=== PATIENT | female | born 1960 | race Hispanic/Latino ===

== ENCOUNTER → 2017-09-06 | Outpatient (CLI) | payer BC ==
--- NOTE | 2017-09-06 18:24 | Diagnostic Imaging Report ---
PROCEDURE: CT abdomen and pelvis without contrast. TECHNIQUE: Multiple contiguous axial images were obtained through the abdomen and pelvis without the use of intravenous contrast. INDICATION: Hematuria. Low back pain. FINDINGS: The lung bases are clear. The liver demonstrates an oval low-density lesion measuring 1.7 cm in the left hepatic lobe likely related to hepatic cyst. The spleen, the adrenal glands, the pancreas, and the gallbladder appear unremarkable. No hydronephrosis is seen. There are a number of pelvic calcifications seen which appear to relate to phleboliths. No urinary tract stones are identified. The appendix is normal. Moderate amount of fecal material is seen in the right colon. No bowel obstruction. The abdominal aorta is normal in caliber. No para-aortic significantly enlarged lymph node is seen. There is a small fat-containing umbilical hernia. The uterus and the adnexa appear grossly unremarkable. No significant free fluid or fluid collection is seen in the abdomen or pelvis. The osseous structures demonstrate degenerative changes in the lower lumbar spine. IMPRESSION: 1. Tiny fat-containing umbilical hernia. 2. No urinary tract stones or hydronephrosis. Dictated by: Dictated on workstation # [id number]
== END ==
LOC: RAD 13:31
PROVIDERS: ATTEND Urology
DX: R31.0 Gross hematuria (principal); K42.9 Umbilical hernia without obstruction or gangrene
CPT/HCPCS: 74176

== ENCOUNTER 2022-05-10 05:39 | Outpatient (CLI) | payer BC, OTHER ==
[~2022-05-10] VITALS: Ht 160 cm; Wt 65.8 kg
[2022-05-10] MEDS ORDERED: LINA290C PO (09:22)
[2022-05-10] MEDS ORDERED: DOCU100C37 PO (09:22)
[2022-05-10] MEDS ORDERED: ATOR20TA66 PO (09:22)
[2022-05-10] MEDS ORDERED: MONT-40 PO (09:22)
[2022-05-10] MEDS ORDERED: OMEP40CA6 PO (09:22)
[2022-05-10] MEDS ORDERED: FAMO20TA3 PO (09:22)
[2022-05-10] MEDS ORDERED: BACI1CAP6 PO (09:22)
== END 2022-05-10 09:26 | disposition home or self-care (01) ==
LOC: PREOP 05:39
PROVIDERS: ATTEND Surgery
DX: Z01.818 Encounter for other preprocedural examination (principal)

== ENCOUNTER 2022-05-22 08:27 | Day surgery (SDC) | payer BC, OTHER ==
[2022-05-22] VITALS (8 sets, daily range): BP systolic 78–126; BP diastolic 49–69
[~2022-05-22] VITALS: Ht 160 cm; Wt 65.8 kg
[~2022-05-22 08:27] MED LIST: ATOR20TA66 PO; BACI1CAP6 PO; DOCU100C37 PO; FAMO20TA3 PO; LINA290C PO; MONT-40 PO; OMEP40CA6 PO
[2022-05-22] MEDS ORDERED: LACTATED RINGERS 1,000 ML IV ONE (08:32)
[2022-05-22] MEDS ORDERED: LACTATED RINGERS 1,000 ML IV STA (08:33)
[2022-05-22] MEDS ORDERED: HURRICAINE EXT TUBE (BENZOCAINE) XX PRN (08:45)
[2022-05-22] MEDS ORDERED: MIDAZOLAM 2 MG/2 ML (VERSED) VIAL ONE (09:24)
[2022-05-22] MEDS ORDERED: PROPOFOL INJECTION 50 ML IV ONE ×2 (09:24→09:50)
--- NOTE | 2022-05-22 10:19 | Progress Note-Post Operative ---
Post-Operative Progess Note Surgeon (s)/Silk Weaver (s) Surgeon PEÑA ARGUELLO DO Silk Weaver: none Pre-Operative Diagnosis Chronic Gastritis, Screening colonoscopy Post-Operative Diagnosis Duodenitis Gastritis Gastric polyp small hiatal hernia esophagitis Diverticula Polyps internal hemorrhoids Procedure & Operative Findings Date of Procedure 05/22/22 Procedure Performed/Findings EGD with bx EGD with hot bx removal of polyp Colonoscopy with snare polypectomy Colonoscopy with hot bx PROCEDURE NOTE: After informed consent was obtained, the patient was brought to the endoscopy suite, placed in bed in left lateral decubitus position. She was administered IV sedation by the EDUCATIONAL/DEVELOPMENT ASSISTANT who then monitored vitals the entire time, heart rate, blood pressure and pulse ox and the scope was inserted down the mouth through the esophagus into the stomach. On the way down, noted some mild esophagitis, took a picture, pushed into the stomach, pushed past the antrum into the duodenum. Duodenum looked like there was some inflammation and I did a biopsy. Pulled back and did a biopsy of the antrum and then retroflexed the scope; saw a small less than 0.5cm hiatal hernia, took a picture of this. I also noted gastric polyps, elected to do a hot biopsy to remove one and send to pathology. Next I pulled the scope into the GE junction, took another picture of the hiatal hernia and then did a biopsy of the GE junction. Pushed the scope back into the stomach, suctioned all the air out of the stomach. At this point pulled the scope up the esophagus and out of the mouth. Switched camera, switched gloves, went down below and st arted the colonoscopy. Pushed all the way into about 140 cm to get all the way to cecum and took a picture of the appendiceal orifice. I also noted the ileocecal valve and on the way in had noted multiple diverticula mostly on the left side but a few scattered ones in the right colon. I took a picture of the diverticula. Then slowly withdrew the scope, insufflating to look circumferentially at the blanco starting in the cecum, up the ascending colon to the hepatic flexure, then down the transverse colon, to the splenic flexure, into the descending colon and finally down into the sigmoid. In the sigmoid saw a flat polyp and elected to do a hot biopsy of this. Continued into the rectum, retroflexed in the rectal vault, saw some minimal internal hemorrhoids and took a picture of this. I pushed back up a little and found a larger polyp; elected to do a snare to completely remove it. The patient tolerated the procedure and she recovered in the endoscopy suite. Recommended for repeat colonoscopy in 5 years Anesthesia Type IV sedation by EDUCATIONAL/DEVELOPMENT ASSISTANT Estimated Blood Loss Estimated blood loss (mL): scant Specimens/Packing Specimens Removed duodenal bx antral bx gastric polyp GE jxn sigmoid polyp rectal polyp PEÑA ARGUELLO DO May 22, 2022 10:19
--- NOTE | 2022-05-22 10:41 | Endoscopy Discharge Instruct ---
Endo Procedure/Findings Findings 1.: Hiatal Hernia, Gastritis 2.: Polyp (Gastric), Other Findings (duodenitis) 3.: Polyp 4.: Diverticulosis, Internal Hemorrhoids Discharge Instructions - Activity: You might feel a little sleepy until tomorrow. This is due to the medicine you received to relax you. Until tomorrow, you should: NOT drive a car, operate machinery or power tools. NOT drink any alcoholic beverages. NOT make any important decisions or sign importortant papers. Do not return to work until tomorrow, unless otherwise instructed. Resume previous activities tomorrow. Diet: Start by taking liquids. If you tolerate liquids, advance to solid food. 1.: EGD in 3 years 2.: Colonscopy in 5 years Notify Physician - If you experience excessive bleeding, unusual abdominal pain, fever, or chest pain, contact your doctor immediately. PEÑA ARGUELLO DO May 22, 2022 10:41
--- NOTE | 2022-05-22 11:37 | Anesthesia-General Post-Op ---
MAC Patient Condition Mental Status/LOC: Same as Preop Cardiovascular: Satisfactory Nausea/Vomiting: Absent Respiratory: Satisfactory Pain: Controlled Complications: Absent Post Op Complications Complications None Follow Up Care/Instructions Patient Instructions None needed. Anesthesiology Discharge Order Discharge Order Patient is doing well, no complaints, stable vital signs, no apparent adverse anesthesia problems. No complications reported per nursing. JACE WILCOX CRNA May 22, 2022 11:37
== END 2022-05-22 11:17 | disposition home or self-care (01) ==
LOC: ENDO 08:27
PROVIDERS: ATTEND Surgery
DX: K58.1 Irritable bowel syndrome with constipation (principal); K29.50 Unspecified chronic gastritis without bleeding; K29.80 Duodenitis without bleeding; K31.7 Polyp of stomach and duodenum; K44.9 Diaphragmatic hernia without obstruction or gangrene; K21.00 Gastro-esophageal reflux disease with esophagitis, without bleeding; D12.8 Benign neoplasm of rectum; K63.5 Polyp of colon; K63.89 Other specified diseases of intestine; K57.30 Diverticulosis of large intestine without perforation or abscess without bleeding; K64.8 Other hemorrhoids; Z79.899 Other long term (current) drug therapy